=== PATIENT | male | born 1975 | race Caucasian/White ===

== ENCOUNTER 2020-06-06 04:52 | Emergency (ER) | payer BC, MEDICAID ==
[~2020-06-06] VITALS: Ht 170.2 cm; Wt 50.0 kg
[2020-06-06] MEDS ORDERED: aspirin 81mg tab.chew PO ONE (05:00)
[2020-06-06 05:30] LABS: BASOPHILS % (AUTO) 0.7 % (0-1); EOSINOPHILS % (AUTO) 0.3 % (0-6); HEMATOCRIT 41.3 % (42.0-52.0); LYMPHOCYTES # (AUTO) 1.2 X10'3 (1.1-4.8); LYMPHOCYTES % (AUTO) 21.1 % (21-51); MEAN CORPUSCULAR HEMOGLOBIN 33.1 PG (27.0-31.0); MEAN CORPUSCULAR HGB CONC 33.9 g/dL (33.0-36.5); MEAN CORPUSCULAR VOLUME 97.7 FL (78-98); MEAN PLATELET VOLUME 8.1 FL (7.4-10.4); MONOCYTES # (AUTO) 0.5 X10'3 (0-0.9); NEUTROPHILS % (AUTO) 68.9 % (42-75); PLATELET COUNT 193 X10'3 (140-440); RED BLOOD COUNT 4.23 X10'6 (4.70-6.10); RED CELL DISTRIBUTION WIDTH 13.8 % (11.5-14.5); WHITE BLOOD COUNT 5.8 X10'3 (4.5-11.0)
[2020-06-06 05:50] LABS: ALANINE AMINOTRANSFERASE 15 U/L (12-78); ALBUMIN 2.6 G/DL (3.4-5.0); ALBUMIN/GLOBULIN RATIO 1.2 (1.1-1.5); ALKALINE PHOSPHATASE 32 IU/L (46-116); ANION GAP 13 (8-16); ASPARTATE AMINO TRANSFERASE 12 U/L (10-37); BILIRUBIN,TOTAL 0.4 MG/DL (0.1-1.0); BLOOD UREA NITROGEN 14 MG/DL (7-18); CALCIUM 6.1 MG/DL (8.5-10.1); CHLORIDE 110 MMOL/L (99-107); CREATININE 0.56 MG/DL (0.60-1.10); GLUCOSE 61 MG/DL (70-104); MAGNESIUM 1.4 MG/DL (1.5-2.4); SODIUM 144 MMOL/L (135-145); TOTAL CARBON DIOXIDE 21.2 MMOL/L (24-32); TOTAL PROTEIN 4.7 G/DL (6.4-8.2); eGFR > 90 ML/MIN
[2020-06-06 06:02] LABS: POTASSIUM 2.9 MMOL/L (3.5-5.1)
[2020-06-06] MEDS ORDERED: potassium Cl 20 mEq SR tablet PO ONE (06:05)
[2020-06-06] MEDS ORDERED: magnesium 2GM in 50ml NS 50 ML IV SCH (06:10)
--- NOTE | 2020-06-06 06:32 | NUR ---
TC FROM , [facility]. CONTACT NUMBER IS [phone]
--- NOTE | 2020-06-06 06:40 | NUR ---
PT MEDS SCANNED AND WHEN TRIED TO GIVE, HE REFUSEDTHEM BOTH SAYING "MY IV IS DIRTY" AND "I WANT TO WAIT UNTIL AFTER THE ECHO".
[2020-06-06] MEDS ORDERED: magnesium oxide 400mg tablet PO ONE (08:00)
--- NOTE | 2020-06-06 09:07 | NUR ---
pt continually refused all meds until after the echo was done. stated he would take a po mgso4 but when offered, he refused. md aware at bedside also attempting to tell pt why he needs the replacements.
[2020-06-06 10:12] VITALS: BP 131/78
== END 2020-06-06 10:15 | disposition left against medical advice (07) ==
LOC: ER 04:52
DX: R25.2 Cramp and spasm (principal); R07.89 Other chest pain; E87.6 Hypokalemia; E83.42 Hypomagnesemia; E83.51 Hypocalcemia
CPT/HCPCS: 36415; 71045; 80053; 83735; 83880; 84484; 85025; 93005; 93306; 96365; 99285; J3475

== ENCOUNTER 2020-06-08 01:49 | Emergency (ER) | payer MEDICAID ==
[~2020-06-08] VITALS: Ht 170.2 cm; Wt 50.0 kg
[2020-06-08 01:52] VITALS: BP 115/76
--- NOTE | 2020-06-08 02:15 | NUR ---
PT REFUSED TO HAVE BLOOD DRAWN. STATES STAFF WAS BEING CONFRONTATIONAL. JOCELIN NOTIFIED. PT STATES HE IS LEAVING, REFUSED TO SIGN AMA FORM. PT ESCORTED OUT OF ER ON PHONE WITH . PICKING PT UP
== END 2020-06-08 02:21 | disposition left against medical advice (07) ==
LOC: ER 01:50
DX: F41.9 Anxiety disorder, unspecified (principal)
CPT/HCPCS: 93005; 99283

== ENCOUNTER 2020-06-08 22:55 | Emergency (ER) | payer MEDICAID ==
[~2020-06-08] VITALS: Ht 170.2 cm; Wt 42.0 kg
[2020-06-09 00:03] LABS: BASOPHILS % (AUTO) 0.4 % (0-1); EOSINOPHILS % (AUTO) 0.4 % (0-6); HEMATOCRIT 39.6 % (42.0-52.0); HEMOGLOBIN 13.3 g/dl (14.0-17.9); LYMPHOCYTES # (AUTO) 1.5 X10'3 (1.1-4.8); LYMPHOCYTES % (AUTO) 24.6 % (21-51); MEAN CORPUSCULAR HEMOGLOBIN 32.4 PG (27.0-31.0); MEAN CORPUSCULAR HGB CONC 33.6 g/dL (33.0-36.5); MEAN CORPUSCULAR VOLUME 96.6 FL (78-98); MEAN PLATELET VOLUME 8.2 FL (7.4-10.4); MONOCYTES # (AUTO) 0.7 X10'3 (0-0.9); MONOCYTES % (AUTO) 11.1 % (2-12); NEUTROPHILS % (AUTO) 63.5 % (42-75); PLATELET COUNT 176 X10'3 (140-440); RED CELL DISTRIBUTION WIDTH 13.7 % (11.5-14.5); WHITE BLOOD COUNT 6.3 X10'3 (4.5-11.0)
[2020-06-09 00:11] LABS: ALANINE AMINOTRANSFERASE 19 U/L (12-78); ALBUMIN 4.2 G/DL (3.4-5.0); ALBUMIN/GLOBULIN RATIO 1.3 (1.1-1.5); ALKALINE PHOSPHATASE 49 IU/L (46-116); ANION GAP 8 (8-16); ASPARTATE AMINO TRANSFERASE 19 U/L (10-37); BILIRUBIN,TOTAL 0.6 MG/DL (0.1-1.0); BLOOD UREA NITROGEN 18 MG/DL (7-18); BUN/CREATININE RATIO 17.8 (5.4-32.0); CALCIUM 9.6 MG/DL (8.5-10.1); CHLORIDE 97 MMOL/L (99-107); CREATININE 1.01 MG/DL (0.60-1.10); GLUCOSE 80 MG/DL (70-104); POTASSIUM 3.8 MMOL/L (3.5-5.1); SODIUM 134 MMOL/L (135-145); TOTAL CARBON DIOXIDE 29.3 MMOL/L (24-32); TOTAL PROTEIN 7.5 G/DL (6.4-8.2); eGFR 80 ML/MIN
[2020-06-09 00:14] LABS: MAGNESIUM 2.3 MG/DL (1.5-2.4); TROPONIN I < 0.04 NG/ML (0.0-0.05)
[2020-06-09 01:08] VITALS: BP 110/74
[2020-06-10] MEDS ORDERED: NO HOME MEDS (12:21)
== END 2020-06-09 01:11 | disposition home or self-care (01) ==
LOC: ER 22:55
DX: R07.89 Other chest pain (principal); Z79.899 Other long term (current) drug therapy
CPT/HCPCS: 36415; 80053; 83735; 84484; 85025; 93005; 99284

== ENCOUNTER 2020-06-10 09:37 | Observation (INO) | payer MEDICAID ==
[~2020-06-10] VITALS: Ht 177.8 cm; Wt 41.0 kg
[2020-06-10] VITALS (9 sets, daily range): BP systolic 108–135; BP diastolic 63–92
[2020-06-10] MEDS ORDERED: LORazepam 2 mg/ml vial IV ONE ×2 (10:00→12:40)
--- NOTE | 2020-06-10 10:13 | NUR ---
Patient refused IV access and requested ativan dose be changed to oral dose instead of IV dose. Dr. Moody notified of the above and he gave verbal order to change the dose from IV to Oral at this time. Lab Biological Technical Officer is collecting lab work via peripheral draw.
[2020-06-10] MEDS: LORazepam 1 MG tablet PO ONE ×2 (10:19→10:26)
[2020-06-10 10:30] LABS: BASOPHILS % (AUTO) 0.8 % (0-1); EOSINOPHILS % (AUTO) 0.5 % (0-6); HEMATOCRIT 43.6 % (42.0-52.0); HEMOGLOBIN 14.7 g/dl (14.0-17.9); LYMPHOCYTES % (AUTO) 26.4 % (21-51); MEAN CORPUSCULAR HEMOGLOBIN 32.7 PG (27.0-31.0); MEAN CORPUSCULAR HGB CONC 33.7 g/dL (33.0-36.5); MEAN CORPUSCULAR VOLUME 97.2 FL (78-98); MEAN PLATELET VOLUME 8.3 FL (7.4-10.4); MONOCYTES # (AUTO) 0.3 X10'3 (0-0.9); MONOCYTES % (AUTO) 8.2 % (2-12); NEUTROPHILS # (AUTO) 2.3 X10'3 (1.8-7.7); NEUTROPHILS % (AUTO) 64.1 % (42-75); PLATELET COUNT 182 X10'3 (140-440); RED BLOOD COUNT 4.48 X10'6 (4.70-6.10); RED CELL DISTRIBUTION WIDTH 13.7 % (11.5-14.5); WHITE BLOOD COUNT 3.6 X10'3 (4.5-11.0)
[2020-06-10] MEDS ORDERED: morphine 2 MG/ML inj. syringe IV PRN ×2 (12:20)
[2020-06-10] MEDS ORDERED: magnesium hydroxide 30ml (MOM) UD suspension PO PRN (12:20)
[2020-06-10] MEDS ORDERED: acetaminophen 325mg tablet PO PRN ×2 (12:20)
[2020-06-10] MEDS ORDERED: regadenoson 0.4mg/5ml syringe IV PRN (12:20)
[2020-06-10] MEDS ORDERED: nitroGLYCERIN 0.4mg SUBLingual tab SL PRN ×2 (12:20)
[2020-06-10] MEDS ORDERED: aminophylline 250mg/10ml inj. IV PRN (12:20)
[2020-06-10] MEDS ORDERED: HYDROcodone/acetaminophen 10/325mg tab PO PRN (12:20)
[2020-06-10] MEDS ORDERED: mag hydrox/Alum hydrox/simeth 30ml oral suspension PO PRN (12:20)
[2020-06-10] MEDS ORDERED: metoprolol tartrate 1mg/ml inj IV PRN (12:20)
[2020-06-10] MEDS ORDERED: HYDROcodone/acetaminophen 5mg/325mg tablet PO PRN (12:20)
[2020-06-10] MEDS ORDERED: ondansetron/PF 4mg/2ml inj IV PRN (12:20)
[2020-06-10] MEDS ORDERED: NO HOME MEDS (12:21)
[2020-06-10] MEDS ORDERED: LORazepam 1 MG tablet PO ONE (12:30)
--- NOTE | 2020-06-10 14:25 | NUR ---
Patient to NM via wheelchair at this time. Dr Hillman at bedside, no signs of distress noted.
--- NOTE | 2020-06-10 17:00 | NUR ---
PATIENT ARRIVED VIA W/C FROM [facility]. PLACED IN ROOM 311. HOB UP CALL LIGHT IN REACH. DENIES CHEST PAIN SOB AND OR NAUSEA. HEART RHYTHM SINUS ELIER IN 40'S . Addendum: 06/10/20 at 1704 by Fide Melo RN Amended: Links added.
--- NOTE | 2020-06-10 18:45 | NUR ---
Patient in room MED 311. I have received report from Demetris, and had the opportunity to ask questions and assume patient care.
--- NOTE | 2020-06-10 18:50 | NUR ---
Patient in room MED 311. I have received report from Demetris, and had the opportunity to ask questions and assume patient care.
[2020-06-10] MEDS ORDERED: LORazepam 0.5 MG tablet PO PRN (19:35)
--- NOTE | 2020-06-10 19:40 | NUR ---
Dr. Hillman at the patient bedside ordered Mag ox 400 mg PO BID, Ativan 0.5 mg PO BID PRN for anxiety, Normal saline at 75 ml/hr, CBC, CMP, and ESR for AM labs. No other orders were given at this time. Addendum: 06/10/20 at 1953 by Donte Lee RN Dr. Hillman also ordered EKG in AM and cancel the EKG with the 12 hr troponin for tonight.
[2020-06-10] MEDS: normal saline 1000ml 1,000 ML IV SCH (20:56)
[2020-06-10] MEDS: magnesium oxide 400mg tablet PO SCH (20:57)
--- NOTE | 2020-06-10 21:51 | NUR ---
patient is noncompliant, and anxious. Unable to perform the orthostatic vitals at this time.
[2020-06-11 02:00] VITALS: BP 95/65
[2020-06-11 06:00] VITALS: BP_SYST 100; BP_SYST 155; BP_DIAS 66; BP_DIAS 68
--- NOTE | 2020-06-11 06:16 | NUR ---
Patient in room MED 311. I have received report from Donte NOLAN and had the opportunity to ask questions and assume patient care.
--- NOTE | 2020-06-11 06:23 | NUR ---
Problems reprioritized. Patient report given to Thea, questions answered & plan of care reviewed with .
[2020-06-11 06:32] LABS: BASOPHILS % (AUTO) 0.6 % (0-1); EOSINOPHILS % (AUTO) 0.5 % (0-6); HEMOGLOBIN 13.6 g/dl (14.0-17.9); LYMPHOCYTES # (AUTO) 1.1 X10'3 (1.1-4.8); LYMPHOCYTES % (AUTO) 22.3 % (21-51); MEAN CORPUSCULAR VOLUME 97.2 FL (78-98); MEAN PLATELET VOLUME 8.8 FL (7.4-10.4); MONOCYTES # (AUTO) 0.4 X10'3 (0-0.9); MONOCYTES % (AUTO) 7.9 % (2-12); NEUTROPHILS # (AUTO) 3.4 X10'3 (1.8-7.7); NEUTROPHILS % (AUTO) 68.7 % (42-75); PLATELET COUNT 179 X10'3 (140-440); RED BLOOD COUNT 4.12 X10'6 (4.70-6.10); RED CELL DISTRIBUTION WIDTH 13.7 % (11.5-14.5)
[2020-06-11 07:06] LABS: ALANINE AMINOTRANSFERASE 28 U/L (12-78); ALBUMIN 3.3 G/DL (3.4-5.0); ALBUMIN/GLOBULIN RATIO 1.1 (1.1-1.5); ALKALINE PHOSPHATASE 58 IU/L (46-116); ANION GAP 5 (8-16); ASPARTATE AMINO TRANSFERASE 18 U/L (10-37); BILIRUBIN,TOTAL 0.2 MG/DL (0.1-1.0); BLOOD UREA NITROGEN 17 MG/DL (7-18); BUN/CREATININE RATIO 18.3 (5.4-32.0); CALCIUM 8.5 MG/DL (8.5-10.1); CHLORIDE 109 MMOL/L (99-107); CHOL/HDL RATIO 6.9 (0.00-4.99); CHOLESTEROL 389 MG/DL (0-200); CREATININE 0.93 MG/DL (0.60-1.10); GLUCOSE 106 MG/DL (70-104); HDL CHOLESTEROL 56 MG/DL (35-60); LDL CHOLESTEROL 297 MG/DL (50-100); POTASSIUM 3.7 MMOL/L (3.5-5.1); SODIUM 144 MMOL/L (135-145); TOTAL CARBON DIOXIDE 30.4 MMOL/L (24-32); TOTAL PROTEIN 6.4 G/DL (6.4-8.2); TRIGLYCERIDES 157 MG/DL (20-135); eGFR 88 ML/MIN
[2020-06-11] MEDS ORDERED: aspirin 81mg tablet.DR PO SCH (08:00)
[2020-06-11] MEDS: magnesium oxide 400mg tablet PO SCH ×2 (08:18→19:39)
[2020-06-11] MEDS: normal saline 1000ml 1,000 ML IV SCH (09:41)
--- NOTE | 2020-06-11 10:00 | NUR ---
After several attempts and waiting until pt to take ASA and MG ordered by he refused. Returned to [facility]
[2020-06-11] MEDS ORDERED: [UNRECOGNIZED DRUG - OTHER] PO (11:49)
[2020-06-11] MEDS ORDERED: OLANZAPINE 5 MG TABLET PO ONE (12:00)
--- NOTE | 2020-06-11 12:59 | NUR ---
dr. no paged: PAGER ID: [phone] MESSAGE: 311: HELADIO ELBA social scientist reminding - to transfer pt to mental health unit need progress note stating "pt medically cleared for admit to behavioral health" ty
--- NOTE | 2020-06-11 13:15 | NUR ---
Pt again refused to take Zyprexa ordered stated he wanted "to wait until he thinks about it more". Wasted the pill.
--- NOTE | 2020-06-11 13:55 | NUR ---
DR. BALL PAGED: PAGER ID: [phone] MESSAGE: 311: HELADIO - ?D/C TELE MONITOR & TRANSFER TO SURGICAL? pretty please and ty :D nurse Mikala [id number]
--- NOTE | 2020-06-11 14:36 | NUR ---
DR. BALL CALLED BACK: NO NEW ORDERS - PATIENT TO REMAIN ON TELE MONITORING ANOTHER 12-24 HOURS, THEN POSSIBLE TELE D/C AND TRANSFER TO [facility] IF ACCEPTED AND BED AVAILABLE
--- NOTE | 2020-06-11 15:24 | NUR ---
Pharmacy called about Herbal supplements pt want to take including 1 that states (blood Sugar Control) with multiple herbs. Pharmacist stated unknown herbs and mixing with other medications reaction. stated his Magnesium Orotate ok BID prn muscle spasms.
[2020-06-11] MEDS ORDERED: [UNRECOGNIZED DRUG - OTHER] PO SCH (15:45)
--- NOTE | 2020-06-11 15:49 | NUR ---
Low BMI trigger: BMI 13; current ht 70in though prior admits ht consistently 67in making true BMI 14 using current chair scale wt 41kg. Pt currently on 1798 hold pending mental health evaluation DX OCD w/ absent insight or delusional beliefs per behavioral health DRY ICE MAKER note. 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 Per ER note pt reports has been self-prescribing insulin to "counter stress hormones." RD d/w nurse charge rn regarding elevated lipid panel results and ketogenic diet hx. lead atg developer reports social service consult placed regarding living conditions given severe cachexia on admit. Pt currently PO 100% avg regular diet requesting additional portions; double proteins TIDWM added at this time. Dietary notified. Pt agreeable to medications for psych treatment as well as appetite improvement per EMR. Pt has mild weakness, no edema/wounds, and eating well but given visible severe muscle/fat wasting evident during RD visit meets severe malnutrition criteria. MD notified. Per MD note pt has possible bulimia though RN reports pt has show no signs of vomiting/emesis after PO and eating well. Will continue to monitor. Rec: 1. continue regular diet; double proteins TIDWM per pt request 2. routine bowel care 3. monitor for signs of refeeding syndrome given fasting hx and severe malnutrition 4. MVI for repletion needs 5. weekly wts Addendum: 06/11/20 at [address] Amended: Links added.
[2020-06-11] MEDS ORDERED: [UNRECOGNIZED DRUG - OTHER] PO PRN (18:00)
--- NOTE | 2020-06-11 18:30 | NUR ---
Problems reprioritized. Patient report given, questions answered & plan of care reviewed with Karen NOLAN.
--- NOTE | 2020-06-11 18:42 | NUR ---
Received report from Ling NOLAN. Patient will be brought to O/N and be in room 4011A.
--- NOTE | 2020-06-11 19:48 | NUR ---
Patient is A&O x4. He is in no apparent distress. Patient stated he wants to leave and there is no reason for him to be here. I explained that he would be leaving AMA. Patient is aware he is leaving AMA and is okay with it. IV and tele monitor removed. Nursing sup and Dr. Bui notified that pt will be leaving. Patient stated his is going to come pick him up. Addendum: 06/11/20 at 8 by Karen Monte RN Patient took all his belongings with him. Home meds were received from pharmacy and given to pt. Charge nurse spoke to the patients and explained to her that the patient wants to leave AMA even though all the risks were discussed with him. is aware that police will be called to do a welfare check. Patient was walked down to the front of the hospital where he claims his will be picking him up at.
--- NOTE | 2020-06-11 19:55 | NUR ---
I walked patient to the front door since he is leaving [place] and Dr. Bui was notified by me of the situation and I also notified slot floor supervisor of the situation. I was told that patient was being evaluated for inpatient psyche facility but was not medically cleared so no holds on him that I can see in the orders. Hired Hand told me to call the police and have them do a welfare check on him and the pt's had called earlier also expressing concern over him leaving due to some psyche issues of him; I informed her that what I could do was a welfare check via the police since I can't hold him in the hospital. She verbalized an ok with the plan at this time. Police was called on discharge and they will do a welfare check is what I was told by dispatcher.
[2020-06-11] MEDS ORDERED: OLANZAPINE 5 MG TABLET PO SCH (21:00)
[2020-06-12] MEDS ORDERED: multivitamins, therapeutics tablet PO SCH (08:00)
== END 2020-06-11 19:55 | disposition left against medical advice (07) ==
LOC: ER 09:37 → ED HOLD 12:24 → MED 3N 16:55 → ORTHO 4S 06-11 19:19
PROVIDERS: ADMIT Internal Medicine; ATTEND Internal Medicine
DX: R07.89 Other chest pain (principal); R00.2 Palpitations; I25.10 Atherosclerotic heart disease of native coronary artery without angina pectoris; F42.9 Obsessive-compulsive disorder, unspecified; E43 Unspecified severe protein-calorie malnutrition; R94.31 Abnormal electrocardiogram [ECG] [EKG]; J90 Pleural effusion, not elsewhere classified; F41.9 Anxiety disorder, unspecified; Z79.899 Other long term (current) drug therapy
CPT/HCPCS: 36415; 78452; 80053; 80061; 82533; 83036; 84443; 84484; 85025; 85651; 87081; 93005; 93017; 96361; 96374; 99284; A9500; G0378; J2060; J2785; J7030

== ENCOUNTER 2020-06-13 16:38 | Emergency (ER) | payer MEDICAID ==
[~2020-06-13] VITALS: Ht 170.2 cm; Wt 50.0 kg
[~2020-06-13 16:38] MED LIST: [UNRECOGNIZED DRUG - OTHER] PO
--- NOTE | 2020-06-13 17:49 | NUR ---
PT STATES, " I DONT GET ENOUGH BLOOD FLOW TO MY HEAD."
--- NOTE | 2020-06-13 17:55 | NUR ---
PRINTED RHYTHM STRIP, NORMAL SINUS ELIER. SHOWN TO PT AND SAID THANK YOU
[2020-06-13 18:40] LABS: BASOPHILS % (AUTO) 0.5 % (0-1); EOSINOPHILS % (AUTO) 0.5 % (0-6); HEMOGLOBIN 13.6 g/dl (14.0-17.9); LYMPHOCYTES # (AUTO) 1.2 X10'3 (1.1-4.8); LYMPHOCYTES % (AUTO) 18.1 % (21-51); MEAN CORPUSCULAR HEMOGLOBIN 33.6 PG (27.0-31.0); MEAN CORPUSCULAR HGB CONC 34.1 g/dL (33.0-36.5); MEAN CORPUSCULAR VOLUME 98.7 FL (78-98); MEAN PLATELET VOLUME 8.7 FL (7.4-10.4); MONOCYTES # (AUTO) 0.5 X10'3 (0-0.9); MONOCYTES % (AUTO) 7.2 % (2-12); NEUTROPHILS # (AUTO) 4.7 X10'3 (1.8-7.7); NEUTROPHILS % (AUTO) 73.7 % (42-75); PLATELET COUNT 172 X10'3 (140-440); RED BLOOD COUNT 4.06 X10'6 (4.70-6.10); RED CELL DISTRIBUTION WIDTH 13.4 % (11.5-14.5); WHITE BLOOD COUNT 6.4 X10'3 (4.5-11.0)
[2020-06-13 18:49] LABS: ALANINE AMINOTRANSFERASE 42 U/L (12-78); ALBUMIN 4.2 G/DL (3.4-5.0); ALBUMIN/GLOBULIN RATIO 1.2 (1.1-1.5); ALKALINE PHOSPHATASE 57 IU/L (46-116); ANION GAP 10 (8-16); ASPARTATE AMINO TRANSFERASE 24 U/L (10-37); BILIRUBIN,TOTAL 0.2 MG/DL (0.1-1.0); BLOOD UREA NITROGEN 25 MG/DL (7-18); BUN/CREATININE RATIO 32.5 (5.4-32.0); CALCIUM 9.3 MG/DL (8.5-10.1); CHLORIDE 101 MMOL/L (99-107); CREATININE 0.77 MG/DL (0.60-1.10); GLUCOSE 96 MG/DL (70-104); POTASSIUM 3.9 MMOL/L (3.5-5.1); SODIUM 140 MMOL/L (135-145); TOTAL CARBON DIOXIDE 29.4 MMOL/L (24-32); TOTAL PROTEIN 7.7 G/DL (6.4-8.2); eGFR > 90 ML/MIN
[2020-06-13 19:33] LABS: ETHANOL < 0.010 GM/DL (0.0-0.010); TROPONIN I < 0.04 NG/ML (0.0-0.05)
[2020-06-13 19:34] LABS: ACETAMINOPHEN < 2.0 UG/ML (10-30)
[2020-06-13 20:35] LABS: URINE AMPHETAMINE SCREEN NEGATIVE (Neg); URINE BARBITUATE SCREEN NEGATIVE (Neg); URINE BENZODIAZEPINES SCREEN NEGATIVE (Neg); URINE CANNABINOID SCREEN NEGATIVE (Neg); URINE COCAINE SCREEN NEGATIVE (Neg); URINE METHADONE SCREEN NEGATIVE (Neg); URINE OPIATE SCREEN NEGATIVE (Neg); URINE PHENCYCLIDINE SCREEN NEGATIVE (Neg)
--- NOTE | 2020-06-13 20:55 | NUR ---
pt amb with steady gait from main ER to overflow,
--- NOTE | 2020-06-13 21:30 | NUR ---
pt at nurse's station, pt is aware of plan sleep here kimberly, gave pt sandwich and crackers
--- NOTE | 2020-06-13 21:58 | NUR ---
pt is sleeping, resp even and unlabored,
--- NOTE | 2020-06-13 23:25 | NUR ---
pt is sleeping
--- NOTE | 2020-06-14 01:00 | NUR ---
pt is sleeping
--- NOTE | 2020-06-14 01:30 | NUR ---
pt amb with steady gait to restroom
--- NOTE | 2020-06-14 05:17 | NUR ---
pt is sleeping quietly on bed
[2020-06-14 05:46] VITALS: BP 108/70
--- NOTE | 2020-06-14 06:15 | NUR ---
Pt resting in bed, no distress noted.
--- NOTE | 2020-06-14 07:48 | NUR ---
Pt awoke and assessed prior to eating breakfast. He denies all signs and symptoms, stating he does not have a psych hx and presented to the ED for cardiac evaluation for spasms for which he is being evaluated by compress trucker, [facility]ier[facility] of [facility]. Pt cooperative and calm, but exasperated that he is on a hold. "I was just here for a cardiac check up and then I was placed back here." Pt also states he was recently prescribed a calcium channel marcelo as treatment by this MD and was advised to present to the ED whenever he has an "episode" because he is at risk for a heart attack. Pt denies any other medications. Diagnostics performed on 06/06, 06/10, and 06/13. 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 Attempted to call , she did not answer. Pt will try again later.
--- NOTE | 2020-06-14 09:32 | NUR ---
Pt discharged to home. Discharged paperwork reviewed and signed. Pt's picked pt up, pt escorted to parking lot by security.
== END 2020-06-14 09:35 | disposition home or self-care (01) ==
LOC: ER 16:39
DX: E46 Unspecified protein-calorie malnutrition (principal); F29 Unspecified psychosis not due to a substance or known physiological condition; R07.9 Chest pain, unspecified; F41.9 Anxiety disorder, unspecified; Z79.899 Other long term (current) drug therapy
CPT/HCPCS: 36415; 80053; 80305; 80320; 80329; 84484; 85025; 93005; 99284

== ENCOUNTER 2021-01-08 10:30 | Outpatient (CLI) | payer MEDICAID | END 2021-01-08 23:59 | disposition home or self-care (01) | LOC: RAD 10:30 | PROVIDERS: ATTEND Family Medicine | DX: R55 Syncope and collapse (principal); R10.9 Unspecified abdominal pain; N34.1 Nonspecific urethritis; N34.3 Urethral syndrome, unspecified; N48.1 Balanitis | CPT/HCPCS: 76775; 93306 ==